=== PATIENT | female | born 1930 | race Caucasian/White ===

== ENCOUNTER 2016-08-30 16:11 | Inpatient (IN) | payer OTHER ==
[~2016-08-30] VITALS: Ht 144.8 cm; Wt 45.5 kg
[~2016-08-30 16:11] MED LIST: LASIX40 MG PO; LIPITOR40 MG PO
[2016-08-30 19:26] LABS: HEMOGLOBIN 13.8 gm/dl (12.3-15.3); RED BLOOD COUNT 4.48 M/UL (4.00-5.10); WHITE BLOOD COUNT 15.6 K/UL (4.5-11.0)
[2016-08-30 19:51] LABS: BUN/CREATININE RATIO 54 (0-10)
[2016-08-30] MEDS ORDERED: K-DUR TAB 20 M20 MEQ PO (20:42)
[2016-08-30] MEDS ORDERED: KEPPRA500 MG PO (20:45)
[2016-08-30] MEDS ORDERED: ASPIR 8181 MG PO (20:46)
[2016-08-30] MEDS ORDERED: COREG 3.125M3.125 MG PO (20:46)
[2016-08-31 06:46] LABS: RED BLOOD COUNT 3.93 M/UL (4.00-5.10); WHITE BLOOD COUNT 11.4 K/UL (4.5-11.0)
[2016-08-31 07:17] LABS: BUN/CREATININE RATIO 50 (0-10)
[2016-09-01 04:01] LABS: HEMOGLOBIN 10.7 gm/dl (12.3-15.3); RED BLOOD COUNT 3.54 M/UL (4.00-5.10); WHITE BLOOD COUNT 13.7 K/UL (4.5-11.0)
[2016-09-01 04:15] LABS: BUN/CREATININE RATIO 37 (0-10)
[2016-09-02 06:18] LABS: HEMOGLOBIN 10.2 gm/dl (12.3-15.3); RED BLOOD COUNT 3.32 M/UL (4.00-5.10); WHITE BLOOD COUNT 11.9 K/UL (4.5-11.0)
[2016-09-02 06:33] LABS: BUN/CREATININE RATIO 53 (0-10)
[2016-09-03 05:40] LABS: HEMOGLOBIN 9.1 gm/dl (12.3-15.3); RED BLOOD COUNT 2.99 M/UL (4.00-5.10); WHITE BLOOD COUNT 9.5 K/UL (4.5-11.0)
[2016-09-03 06:00] LABS: BUN/CREATININE RATIO 53 (0-10)
[2016-09-04 04:25] LABS: HEMOGLOBIN 9.1 gm/dl (12.3-15.3); RED BLOOD COUNT 2.94 M/UL (4.00-5.10); WHITE BLOOD COUNT 8.6 K/UL (4.5-11.0)
[2016-09-04 04:52] LABS: BUN/CREATININE RATIO 38 (0-10)
[2016-09-05] MEDS ORDERED: ENSURE LIQUID237 ML PO (12:46)
[2016-09-05] MEDS ORDERED: COLACE100 MG PO (12:47)
[2016-09-05] MEDS ORDERED: XARELTO10 MG PO (12:48)
[2016-09-05] MEDS ORDERED: PROTONIX40 MG PO (12:48)
[2016-09-05] MEDS ORDERED: BACTRIM 400-801 EACH PO (12:49)
[2016-09-05] MEDS ORDERED: HYDROCODON-ACE1 EAC4 PO (12:50)
[2016-09-05] MEDS ORDERED: TYLENOL 325MG325 MG PO (12:50)
[2016-09-05] MEDS ORDERED: [UNRECOGNIZED DRUG - OTHER] PO (12:51)
[2016-12-22] MEDS ORDERED: LACTULOSE10 GM/15 M PO (05:37)
[2016-12-22] MEDS ORDERED: MIRALAX PACK 171 PKT PO (05:39)
[2016-12-22] MEDS ORDERED: BENECALORI7.5 KCAL/1 PO (05:41)
[2016-12-22] MEDS ORDERED: [UNRECOGNIZED DRUG - OTHER] PO (05:42)
[2016-12-22] MEDS ORDERED: FERROUS SULFAT325 MG PO (05:43)
[2016-12-22] MEDS ORDERED: ELIQUIS5 MG PO (05:43)
== END 2016-09-05 18:05 | DRG 469 ==
LOC: ER1 16:11 → M/S 18:00 → ER1 18:00 → ZEROF 18:00 → M/S 20:22
PROVIDERS: Emergency Medicine; Orthopaedic Surgery; ADMIT Family Medicine
PROC: 2W6LX0Z Traction of Right Lower Extremity using Traction Apparatus (ICD-10-PCS; principal; 2016-08-30)
PROC: 0SRR0JZ Replacement of Right Hip Joint, Femoral Surface with Synthetic Substitute, Open Approach (ICD-10-PCS; 2016-08-31)
DX: S72.001A Fracture of unspecified part of neck of right femur, initial encounter for closed fracture (principal); G93.41 Metabolic encephalopathy; N39.0 Urinary tract infection, site not specified; I50.22 Chronic systolic (congestive) heart failure; E87.0 Hyperosmolality and hypernatremia; W19.XXXA Unspecified fall, initial encounter; T50.2X5A Adverse effect of carbonic-anhydrase inhibitors, benzothiadiazides and other diuretics, initial encounter; I48.2 Chronic atrial fibrillation; I27.2 Other secondary pulmonary hypertension; G40.909 Epilepsy, unspecified, not intractable, without status epilepticus; I25.10 Atherosclerotic heart disease of native coronary artery without angina pectoris; Z95.1 Presence of aortocoronary bypass graft; Z79.82 Long term (current) use of aspirin; Z82.3 Family history of stroke; Z82.49 Family history of ischemic heart disease and other diseases of the circulatory system; B96.89 Other specified bacterial agents as the cause of diseases classified elsewhere; Z86.73 Personal history of transient ischemic attack (TIA), and cerebral infarction without residual deficits; Z95.4 Presence of other heart-valve replacement; K59.00 Constipation, unspecified; W18.39XA Other fall on same level, initial encounter; Z91.81 History of falling; Y93.89 Activity, other specified; Y92.008 Other place in unspecified non-institutional (private) residence as the place of occurrence of the external cause
CPT/HCPCS: ECHO; 36415; 51702; 70450; 71010; 72170; 73502; 80048; 80053; 81001; 82550; 82553; 82962; 83874; 83880; 84484; 85025; 85027; 87077; 87086; 87186; 93005; 93306; 93880; 96374; 96375; 97110; 97116; 97530; 99285; C1776; J0690; J0696; J2270; J2405; J2795; J7050; J7120